=== PATIENT | female | born 1980 | race Caucasian/White ===

== ENCOUNTER 2018-02-28 19:12 | Emergency (ER) | payer OTHER ==
[~2018-02-28] VITALS: Ht 170.2 cm; Wt 54.4 kg
[2018-02-28 19:26] VITALS: BP 148/88
[2018-02-28] MEDS ORDERED: Morphine Sulfate 4mg/ml Inj (IV/IM USE ONLY) IM ONE (19:45)
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
[2018-02-28] MEDS ORDERED: NORCO 5-325 TA1 EACH ORAL (20:06)
[2018-02-28] MEDS ORDERED: IBUPROFEN600 MG ORAL (20:06)
[2018-02-28 20:20] VITALS: BP 138/80
[2018-02-28 20:22] VITALS: BP 138/80
== END 2018-02-28 20:35 | disposition home or self-care (01) ==
LOC: EMR 19:55
DX: T20.20XA Burn of second degree of head, face, and neck, unspecified site, initial encounter (principal); T20.27XA Burn of second degree of neck, initial encounter; T31.0 Burns involving less than 10% of body surface; T65.891A Toxic effect of other specified substances, accidental (unintentional), initial encounter; Y99.8 Other external cause status; Y92.69 Other specified industrial and construction area as the place of occurrence of the external cause; Z88.5 Allergy status to narcotic agent
CPT/HCPCS: 16020; 96372; 99283; J2270